=== PATIENT | male | born 1990 | race Caucasian/White ===

== ENCOUNTER 2016-11-21 13:24 | Emergency (ER) | payer BC, OTHER ==
[2016-11-21 13:45] VITALS: BP 125/77; PULSE 87; RESP 14; TEMP 97.9; O2SAT 99
--- NOTE | 2016-11-21 13:46 | UCPHY ---
H & P Patient Type: New Time Seen by Provider: 11/21/16 13:38 HPI/ROS: Chief complaint: Sinus congestion and pain HPI: Patient has been having 3 weeks of sinus congestion and pain. Has been having greenish discharge. Some mild cough last 2 weeks but patient did just quit smoking. No fevers or chills. No ear pain. Some mild headaches. No nausea or vomiting. No sore throat or difficulty swallowing. ROS: 10 point Review of Systems is negative except as noted in the HPI. Physical exam: Gen: Awake, Alert, No Distress HEENT: Face: Mild right greater than left maxillary sinus tenderness to percussion Ears: Bilateral TMs are normal, no erythema or bulging. External auditory canals are clear. Nose: no rhinorrhea Eyes: PERRLA, EOMI Mouth: Moist mucosa Neck: Supple, no JVD Chest: nontender, lungs clear to auscultation Heart: S1, S2 normal, no murmur Abd: Soft, non-tender, no guarding Back: no CVA tenderness, no midline tenderness Ext: no edema, non-tender Skin: no rash Neuro: CN II-XII intact, Sensation grossly intact, Strength 5/5 in bilateral upper and lower extremities - Family History Significant Family History: No pertinent family hx Constitutional: Initial Vital Signs Temperature (C) 36.6 C 11/21/16 13:43 Heart Rate 87 11/21/16 13:43 Respiratory Rate 14 11/21/16 13:43 Blood Pressure 125/77 H 11/21/16 13:43 O2 Sat (%) 99 11/21/16 13:43 O2 Delivery Mode Room Air Allergies/Adverse Reactions: Penicillins Allergy (Verified 11/21/16 13:43) Home Medications: Medication Instructions Recorded Clindamycin HCl [Clindamycin] 300 mg PO TID #30 cap 11/21/16 Fluticasone Nasal [Flonase Nasal 2 sprays NASAL DAILY #1 mdi 11/21/16 [place] (RX)] Departure - Departure Disposition: Home, Routine, Self-Care Clinical Impression: Sinusitis Condition: Good Instructions: Sinusitis (ED) Additional Instructions: Please take your full course of antibiotics. Follow up with primary care physician in about a week if symptoms are not improving. Referrals: NONE *PRIMARY CARE P,. [Primary Care Provider] - As per Instructions Cecilio Clark [Doctor of Osteopathy] - As per Instructions Prescriptions: Clindamycin HCl [Clindamycin] 300 mg PO TID #30 cap Fluticasone Nasal [Flonase Nasal [place] (RX)] 2 sprays NASAL DAILY #1 mdi - PQRS PQRS Measurement: NA
== END 2016-11-21 14:15 | disposition home or self-care (01) ==
LOC: CED 13:24
DX: J01.90 Acute sinusitis, unspecified (principal); Z87.891 Personal history of nicotine dependence
CPT/HCPCS: G0463-PO